=== PATIENT | male | born 1985 | race Caucasian/White ===

== ENCOUNTER 2023-09-01 21:30 | Inpatient (IN) ==
--- NOTE | 2023-09-01 21:51 | Emergency Department Note ---
Impression & Plan Syncope and collapse, Closed head injury, Fracture of nasal bone, Complex laceration of face ED Provider Note Name: MAINE GANDARA Age: 38 Sex: Male Arrives Via: Walk-In Informant: Patient and parents who witnessed the event ED Provider: Johnny Gómez MD Chief Complaint: Syncope Impression: As per impressions above Medical Decision Makin-year-old gentleman who recently traveled back from the [facility] arrives following sudden syncopal episode x 2. Both times sudden and no preceding events. Did strike his face as he collapsed to the ground. Arrives with significant abrasions lacerations to the anterior face. Awake alert oriented NIH 0. Breathing relatively comfortably other than a bit tachycardic. Given IV fluids and given trauma and recent travel CT of the head, cervical spine without contrast were obtained as well as a CT PE scan of the chest and a CT abdomen pelvis. Laboratory workup is relatively unremarkable. EKG is reassuring. CTs show nasal fracture but no other acute concerning findings. Laceration dirty and quite complex washed and repaired by Ty Dao PA-C. Plan to follow-up as an outpatient with [facility] given complex dirty wound and on antibiotics. That said given the syncopal event x 2 no preceding event clearly continued monitoring is reasonable and thus patient was hospitalized. No evidence of ACS, PE, dissection. Does not seem consistent with stroke. Concern for arrhythmia that could have caused it but he does not exhibit any arrhythmia on cardiac monitoring other than mild tachycardia. Triage/Nursing Notes reviewed by Me Differential:Vasovagal event, dehydration, infection, hypoglycemia, electrolyte abnormalities, cardiac sources, intracerebral event, pulmonary embolism, seizure, toxicologic, neurologic, as well as other pathologies. Vital Signs: reviewed and remarkable for tachy Interventions: Normal Saline bolus 1 L IV, Dilaudid 1 mg IV, Zofran 4 mg IV x 2, Ativan 1 mg IV, Unasyn IV. of note patient had severe nausea vomiting reaction to Dilaudid and was placed on his chart. Labs:ED labs Reviewed by me and remarkable for no significant abnormalities Imaging:CT of the head without contrast as per my informal interpretation no fracture nor intracranial hemorrhage/mass effect. Confirmed by radiologist to do note a small punctate area of air without clear source. CT of the cervical spine no fracture no dislocation appreciated as per my informal interpretation. Confirmed radiologist. CT of the face as per radiologist nasal bone fractures subcu air and multiple foreign bodies in anterior upper lip. CT chest PE scan as per my informal interpretation. No large caliber PE, effusion, pneumothorax, other. Confirmed radiologist. CT abdomen pelvis with IV contrast as per my informal interpretation. No intra- abdominal obstruction, free fluid, abscess. Confirmed by radiologist. EKG:As per my interpretation. Indication syncope. Sinus tachycardia at 105 bpm no ectopy no ischemia. QTc 425. No previous EKG for comparison Cardiac/Tele Monitoring: Cardiac Monitoring: An Order was placed for continuous cardiac monitoring. The monitor shows a rate of 105 with a sinus tach rhythm. Consults:Dr Niesha rBooks hospitalist to eval and bring in Dr Joanne DING discussed with STACI and will see patient early next week in clinic Plan: Disposition:Hospitalization. Condition: Good History of Present Illness: 38-year-old male arrives for evaluation of head trauma. Patient notes he has been feeling lightheaded throughout the day and had multiple syncopal events. He landed to hit his face on the concrete prior to arrival. Witnessed by family. Brought to ER for further evaluation. They note has been a little bit lightheaded. Patient states has been having palpitations. Recent travel from the [facility] a few weeks ago. Denies any leg swelling or calf pain though. No history of DVT or PE. Patient is on antidepressant medicine which he took this morning. Denies any drug or alcohol use. Denies recurrent syncope issues. He is under the impression that his tetanus shot is up-to-date. Past Medical History:Depression anxiety Home Medications:Antidepressant Allergies:No known drug allergy Vitals:Blood Pressure: 105/67, Pulse 105, RR 18, T 36.8C, O2 97% on RA Physical Exam: GENERAL: Patient is unwell appearing and in mild distress. HEAD: AT/NC other than face FACE: Extensive abrasions/bleeding over nose, upper lip chin. chipped upper front teeth NECK: No cervical TTP nor step-offs RESPIRATORY: No dyspnea. Clear to auscultation and equal bilaterally. CARDIOVASCULAR: Regular rate and rhythm.No murmur appreciated. GASTROINTESTINAL: Abdomen soft, non-tender, no peritonitis. EXTREMITIES: Normal motion all extremities, no cyanosis, no edema. NEUROLOGIC: Alert and oriented. No focal neurologic deficits appreciated SKIN: No rash, no jaundice, no diaphoresis. PSYCH: Appropriate GCS: 15 ED Course: Times/Reassessments: Multiple repeat evaluations. Patient is a bit uncomfortable with laceration repair this was given some Dilaudid. Unfortunately significant nausea vomiting from this. Zofran and Ativan given. Patient agreeable to hospitalization. Johnny Gómez MD Past Med/Surg History Social History Smoking Status: Never smoker Second Hand Exposure: No; Do You Dip or Chew Tobacco: No; Hx Alcohol Use: Yes Alcohol type: beer Preferred Language: Trinidadian Communication Ability: Effective Mortgage Protection Specialist Required: No Beliefs That Will Affect Care: None Current Living Situation: Alone Other Information That Helps Us Care for You: No Feels Safe at Home: Yes Safety Concerns: Feels Safe At This Time Assistive Devices: None Allergies Allergies Allergy/AdvReac Type Severity Reaction Status Date / Time Opioids - Morphine Analogues AdvReac Intermediate Vomiting Verified 09/02/23 01:20 Home Meds Home Medications Medication Instructions Recorded Confirmed desvenlafaxine succinate 50 mg 50 mg PO DAILY 09/01/23 09/01/23 tablet,extended release 24 hr Results & Data (ED) Vital Signs Vital Signs - 24 hr 09/01/23 21:33 09/01/23 22:47 09/01/23 23:01 Temperature 36.8 C Temperature Source Temporal Artery Scan Pulse Rate 105 H 103 H Pulse Rate [Apical] 105 H Pulse Rate from SpO2 Sensor Respiratory Rate 18 13 Respiratory Effort / Characteristics Non-Labored Spontaneous Respiratory Depth Normal Respiratory Pattern Regular Blood Pressure 105/67 Blood Pressure [Left Arm] 107/72 Blood Pressure Mean 79 Blood Pressure Mean [Left Arm] 83 Blood Pressure Position Sitting Pulse Oximetry 97 96 Oxygen Delivery Method Room Air Room Air Sepsis Recent Fever Within 48 Hours No Sepsis New/Unexplained Change in Mental Status N/A Sepsis Action Taken by Nursing No Action Required 09/01/23 23:01 09/02/23 00:00 09/02/23 01:00 Temperature Temperature Source Pulse Rate 103 H 104 H Pulse Rate [Apical] Pulse Rate from SpO2 Sensor 103 H 104 H Respiratory Rate 16 19 Respiratory Effort / Characteristics Respiratory Depth Respiratory Pattern Blood Pressure Blood Pressure [Left Arm] Blood Pressure Mean Blood Pressure Mean [Left Arm] Blood Pressure Position Pulse Oximetry 96 93 97 Oxygen Delivery Method Room Air Sepsis Recent Fever Within 48 Hours Sepsis New/Unexplained Change in Mental Status Sepsis Action Taken by Nursing 09/02/23 02:00 Temperature Temperature Source Pulse Rate 91 H Pulse Rate [Apical] Pulse Rate from SpO2 Sensor 92 H Respiratory Rate 16 Respiratory Effort / Characteristics Respiratory Depth Respiratory Pattern Blood Pressure Blood Pressure [Left Arm] Blood Pressure Mean Blood Pressure Mean [Left Arm] Blood Pressure Position Pulse Oximetry 93 Oxygen Delivery Method Sepsis Recent Fever Within 48 Hours Sepsis New/Unexplained Change in Mental Status Sepsis Action Taken by Nursing Laboratory Data 09/02/23 03:54 09/02/23 03:54 Lab Results 09/01/23 09/01/23 09/01/23 Range/Units 21:46 21:51 22:10 WBC 14.28 H (4.8-10.8) K/ul RBC 5.83 (4.70-6.10) M/uL Hgb 16.5 (14.0-18.0) g/dl POC Hgb 17.0 (14.0-18.0) g/dl Hct 48.6 (42.0-52.0) % POC Hct 50 (42-52) % MCV 83.4 (80.0-100.0) fL MCH 28.3 (25.0-34.0) pg MCHC 34.0 (32.0-36.0) g/dL RDW Std Deviation 40.9 (36.4-46.3) fL RDW Coeff of Camryn 13.5 (11.5-14.5) % Plt Count 414 H (130-400) K/uL MPV 8.7 L (9.4-12.4) fL Immature Gran % (Auto) 0.6 % Neut % (Auto) 77.6 % Lymph % (Auto) 14.1 % [place] % (Auto) 6.2 % Eos % (Auto) 1.3 % Baso % (Auto) 0.2 % Neut # (Auto) 11.08 H (1.40-6.50) K/uL Lymph # (Auto) 2.02 (1.20-3.40) K/uL [place] # (Auto) 0.88 H (0.11-0.59) K/uL Eos # (Auto) 0.18 (0.00-0.50) K/uL Baso # (Auto) 0.03 (0.00-0.20) K/uL Immature Gran # (Auto) 0.09 (0.01-0.20) K/uL PT 10.3 (9.0-12.0) Seconds INR 0.9 (0.9-1.1) POC Sodium 140 (135-144) mmol/L Sodium 139 (136-145) mmol/L POC Potassium 4.0 (3.3-5.0) mmol/L Potassium 4.1 (3.5-5.1) mmol/L POC Chloride 100 L (101-112) mmol/L Chloride 101 (98-107) mmol/L Carbon Dioxide 28 (21-32) mmol/L POC Total CO2 31 (24-31) mmol/L Anion Gap 10 (3-11) POC Anion Gap 14.0 L (16-25) mmol/L POC BUN 22 H (7-18) mg/dl BUN 21 (6-23) mg/dl Creatinine 1.26 (0.6-1.4) mg/dl POC Creatinine 1.3 (0.6-1.3) mg/dl Est Cr Clr Drug Dosing Not Reportable Est GFR ( Amer) 83.9 ml/min Est GFR (Non-Af Amer) 72.4 ml/min BUN/Creatinine Ratio 16.7 (10-20) Glucose 135 H (70-99(Fasting)) mg/dl POC Glucose 127 H (70-99) mg/dl POC Glucose (other) 135 H (70-99) mg/dl Estimat Average Glucose 111 mg/dl Hemoglobin A1c 5.5 (4.5-5.6) % Calcium 9.3 (8.6-10.3) mg/dl POC Ioniz Calcium Teresa 1.15 (1.12-1.32) mmol/l Magnesium 1.9 (1.7-2.4) mg/dl Total Bilirubin 0.4 (0.2-1.0) mg/dl AST 24 (13-39) U/L ALT 22 (7-52) U/L Alkaline Phosphatase 50 (34-104) U/L Troponin I High Sens 5.8 (0-20) pg/ml Total Protein 7.8 (6.0-8.3) gm/dl Albumin 4.7 (3.4-5.0) gm/dl Globulin 3.1 (2.5-4.0) gm/dl Albumin/Globulin Ratio 1.5 (0.9-2) Lipase 15 (11-82) U/L Procalcitonin 0.05 (0-0.5) ng/ml TSH 1.459 (0.300-4.500) uIu/ml Adenovirus (PCR) (NotDetected) B. pertussis DNA (PCR) (NotDetected) B.parapertussis DNA PCR (NotDetected) C. pneumoniae DNA (PCR) (NotDetected) Coronavirus OC43 (PCR) (NotDetected) Coronavirus HKU1 (PCR) (NotDetected) Coronavirus 229E (PCR) (NotDetected) SARS-CoV-2 (PCR) (NotDetected) Coronavirus NL63 (PCR) (NotDetected) Human Metapneumovir PCR (NotDetected) Influenza Type A (PCR) (NotDetected) Influenza Type B (PCR) (NotDetected) M. pneumoniae (PCR) (NotDetected) Parainfluenza 1 (PCR) (NotDetected) Parainfluenza 2 (PCR) (NotDetected) Parainfluenza 3 (PCR) (NotDetected) Parainfluenza 4 (PCR) (NotDetected) RSV (PCR) (NotDetected) Entero/Rhino (PCR) (NotDetected) Blood Type Antibody Screen 09/01/23 09/01/23 Range/Units 22:47 23:45 WBC (4.8-10.8) K/ul RBC (4.70-6.10) M/uL Hgb (14.0-18.0) g/dl POC Hgb (14.0-18.0) g/dl Hct (42.0-52.0) % POC Hct (42-52) % MCV (80.0-100.0) fL MCH (25.0-34.0) pg MCHC (32.0-36.0) g/dL RDW Std Deviation (36.4-46.3) fL RDW Coeff of Camryn (11.5-14.5) % Plt Count (130-400) K/uL MPV (9.4-12.4) fL Immature Gran % (Auto) % Neut % (Auto) % Lymph % (Auto) % [place] % (Auto) % Eos % (Auto) % Baso % (Auto) % Neut # (Auto) (1.40-6.50) K/uL Lymph # (Auto) (1.20-3.40) K/uL [place] # (Auto) (0.11-0.59) K/uL Eos # (Auto) (0.00-0.50) K/uL Baso # (Auto) (0.00-0.20) K/uL Immature Gran # (Auto) (0.01-0.20) K/uL PT (9.0-12.0) Seconds INR (0.9-1.1) POC Sodium (135-144) mmol/L Sodium (136-145) mmol/L POC Potassium (3.3-5.0) mmol/L Potassium (3.5-5.1) mmol/L POC Chloride (101-112) mmol/L Chloride (98-107) mmol/L Carbon Dioxide (21-32) mmol/L POC Total CO2 (24-31) mmol/L Anion Gap (3-11) POC Anion Gap (16-25) mmol/L POC BUN (7-18) mg/dl BUN (6-23) mg/dl Creatinine (0.6-1.4) mg/dl POC Creatinine (0.6-1.3) mg/dl Est Cr Clr Drug Dosing Est GFR ( Amer) ml/min Est GFR (Non-Af Amer) ml/min BUN/Creatinine Ratio (10-20) Glucose (70-99(Fasting)) mg/dl POC Glucose (70-99) mg/dl POC Glucose (other) (70-99) mg/dl Estimat Average Glucose mg/dl Hemoglobin A1c (4.5-5.6) % Calcium (8.6-10.3) mg/dl POC Ioniz Calcium Teresa (1.12-1.32) mmol/l Magnesium (1.7-2.4) mg/dl Total Bilirubin (0.2-1.0) mg/dl AST (13-39) U/L ALT (7-52) U/L Alkaline Phosphatase (34-104) U/L Troponin I High Sens (0-20) pg/ml Total Protein (6.0-8.3) gm/dl Albumin (3.4-5.0) gm/dl Globulin (2.5-4.0) gm/dl Albumin/Globulin Ratio (0.9-2) Lipase (11-82) U/L Procalcitonin (0-0.5) ng/ml TSH (0.300-4.500) uIu/ml Adenovirus (PCR) Not Detected (NotDetected) B. pertussis DNA (PCR) Not Detected (NotDetected) B.parapertussis DNA PCR Not Detected (NotDetected) C. pneumoniae DNA (PCR) Not Detected (NotDetected) Coronavirus OC43 (PCR) Not Detected (NotDetected) Coronavirus HKU1 (PCR) DETECTED A (NotDetected) Coronavirus 229E (PCR) Not Detected (NotDetected) SARS-CoV-2 (PCR) Not Detected (NotDetected) Coronavirus NL63 (PCR) Not Detected (NotDetected) Human Metapneumovir PCR Not Detected (NotDetected) Influenza Type A (PCR) Not Detected (NotDetected) Influenza Type B (PCR) Not Detected (NotDetected) M. pneumoniae (PCR) Not Detected (NotDetected) Parainfluenza 1 (PCR) Not Detected (NotDetected) Parainfluenza 2 (PCR) Not Detected (NotDetected) Parainfluenza 3 (PCR) Not Detected (NotDetected) Parainfluenza 4 (PCR) Not Detected (NotDetected) RSV (PCR) Not Detected (NotDetected) Entero/Rhino (PCR) Not Detected (NotDetected) Blood Type A Positive Antibody Screen NEGATIVE Administered Medications Amoxicillin/Clavulanate Potassium (Amoxicillin/Clavulanate 875 Mg Tab) 1 tab PO BIDM [facility]; Protocol Stop: 09/09/23 07:59 Last Admin: 09/02/23 08:39 Dose: 1 tab Documented By: LAN Ketorolac Tromethamine (Ketorolac Tromethamine 15 Mg/Ml Vial) 15 mg IV Q6H PRN PRN Reason: Pain Stop: 09/07/23 02:20 Last Admin: 09/02/23 10:33 Dose: 15 mg Documented By: LAN Miscellaneous (Desvenfelaxine~Order Awaiting Action) 1 each N/A QS [facility] Stop: 10/02/23 05:44 Last Admin: 09/02/23 09:13 Dose: Not Given Documented By: Admin: 09/02/23 09:12 Dose: Not Given Documented By: LAN Discontinued Medications Hydromorphone HCl (Hydromorphone Inj 1 Mg/Ml Syringe) 1 mg IV NOW STA Stop: 09/02/23 00:45 Last Admin: 09/02/23 00:57 Dose: 1 mg Documented By: MINAL Sodium Chloride (Nss) 1,000 mls @ 999 mls/hr IV .Q1H1M ONE Stop: 09/01/23 22:45 Last Infusion: 09/02/23 01:00 Dose: Infused Documented By: Admin: 09/01/23 23:11 Dose: 999 mls/hr Documented By: MINAL Ampicillin Sodium/Sulbactam Sodium 3,000 mg/ Sodium Chloride 100 mls @ 200 mls/hr IV NOW STA Stop: 09/02/23 01:15 Last Infusion: 09/02/23 02:40 Dose: Infused Documented By: Admin: 09/02/23 01:30 Dose: 200 mls/hr Documented By: MINAL Magnesium Sulfate/Dextrose (Magnesium Sulfate / D5w) 1 gm in 100 mls @ 50 mls/hr IV ONE STA Stop: 09/02/23 03:05 Last Infusion: 09/02/23 04:58 Dose: Infused Documented By: Admin: 09/02/23 02:03 Dose: 50 mls/hr Documented By: MINAL Lactated Ringer's (Lr) 1,000 mls @ 200 mls/hr IV .Q5H STA Stop: 09/02/23 06:06 Last Infusion: 09/02/23 10:05 Dose: Infused Documented By: Admin: 09/02/23 05:02 Dose: 200 mls/hr Documented By: Sodium Chloride (Nss) 1,000 mls @ 999 mls/hr IV .Q1H1M ONE Stop: 09/02/23 02:19 Last Infusion: 09/02/23 04:58 Dose: Infused Documented By: Admin: 09/02/23 02:03 Dose: 999 mls/hr Documented By: MINAL Ioversol (Optiray 320 125ml) 115 ml IV ONCE ONE Stop: 09/01/23 22:15 Last Admin: 09/01/23 22:14 Dose: 115 ml Documented By: PATSY Lidocaine HCl (Lidocaine 1% Local 20 Ml Vial) 20 ml INFIL NOW ONE Stop: 09/02/23 00:47 Last Admin: 09/02/23 01:47 Dose: 20 ml Documented By: MINAL Lorazepam (Lorazepam 1 Mg/1 Ml Syr Ed Inj Use) 1 mg IV ONE STA Stop: 09/02/23 01:20 Last Admin: 09/02/23 02:05 Dose: Not Given Documented By: MINAL Ondansetron HCl (Ondansetron Inj 2 Mg/Ml 2 Ml Vial) 4 mg IV NOW STA Stop: 09/01/23 21:46 Last Admin: 09/01/23 23:41 Dose: 4 mg Documented By: MINAL Ondansetron HCl (Ondansetron Inj 2 Mg/Ml 2 Ml Vial) Confirm Administered Dose 4 mg .ROUTE .STK-MED ONE Stop: 09/02/23 01:12 Last Admin: 09/02/23 01:31 Dose: Not Given Documented By: MINAL Ondansetron HCl (Ondansetron Inj 2 Mg/Ml 2 Ml Vial) 4 mg IV NOW STA Stop: 09/02/23 01:20 Last Admin: 09/02/23 01:30 Dose: 4 mg Documented By: MINAL Discharge Plan Visit Data Chief Complaint: Syncope (Near Syncope) Stated Complaint: FELL, FAINTED TWICE, FACIAL LACS/INJURY, VOMITING ED Provider: Johnny Gómez Discharge Problem: Syncope and collapse, Closed head injury, Fracture of nasal bone, Complex laceration of face Discharge Instructions Interventions: ED Discharge Assessment Last Done: 09/02/23 05:22 Discharge Problem: Closed head injury Qualifiers: Encounter type: initial encounter Qualified Code(s): S09.90XA - Unspecified injury of head, initial encounter Fracture of nasal bone Qualifiers: Encounter type: initial encounter Fracture type: open Qualified Code(s): S 02.2XXB - Fracture of nasal bones, initial encounter for open fracture Complex laceration of face Qualifiers: Encounter type: initial encounter Qualified Code(s): S01.91XA - Laceration without foreign body of unspecified part of head, initial encounter
[2023-09-01 22:04] LABS: iSTAT Creatinine 1.3 mg/dl (0.6-1.3); iSTAT Ionized Calcium 1.15 mmol/l (1.12-1.32)
[2023-09-01] MEDS: OPTIRAY 320 125ml IV ONE (22:14)
[2023-09-01 22:30] LABS: Basophils # (auto) 0.03 K/uL (0.00-0.20); Basophils % (auto) 0.2 %; Eosinophils # (auto) 0.18 K/uL (0.00-0.50); Eosinophils % (auto) 1.3 %; Hematocrit (blood only) 48.6 % (42.0-52.0); Hemoglobin 16.5 g/dl (14.0-18.0); Immature Granulocytes # (auto) 0.09 K/uL (0.01-0.20); Immature Granulocytes % (auto) 0.6 %; Lymphocytes # (auto) 2.02 K/uL (1.20-3.40); Lymphocytes % (auto) 14.1 %; Mean Corpuscular Hemoglobin 28.3 pg (25.0-34.0); Mean Corpuscular Volume 83.4 fL (80.0-100.0); Mean Platelet Volume 8.7 fL (9.4-12.4); Monocytes # (auto) 0.88 K/uL (0.11-0.59); Monocytes % (auto) 6.2 %; Neutrophils # (auto) 11.08 K/uL (1.40-6.50); Neutrophils % (auto) 77.6 %; Platelet Count 414 K/uL (130-400); RDW Coefficient of Variation 13.5 % (11.5-14.5); RDW Standard Deviation 40.9 fL (36.4-46.3); Red Blood Count 5.83 M/uL (4.70-6.10); White Blood Count 14.28 K/ul (4.8-10.8)
[2023-09-01 22:46] LABS: Alanine Aminotransferase 22 U/L (7-52); Albumin Globulin Ratio 1.5 (0.9-2); Albumin Level 4.7 gm/dl (3.4-5.0); Alkaline Phosphatase 50 U/L (34-104); Anion Gap 10 (3-11); Aspartate Aminotransferase 24 U/L (13-39); BUN Creatinine Ratio 16.7 (10-20); Bilirubin,Total 0.4 mg/dl (0.2-1.0); Blood Urea Nitrogen 21 mg/dl (6-23); Calcium 9.3 mg/dl (8.6-10.3); Carbon Dioxide 28 mmol/L (21-32); Chloride 101 mmol/L (98-107); Est GFR (African American) 83.9 ml/min; Est GFR (Non-African American) 72.4 ml/min; Globulin 3.1 gm/dl (2.5-4.0); Glucose 135 mg/dl (70-99(Fasting)); Magnesium 1.9 mg/dl (1.7-2.4); Potassium 4.1 mmol/L (3.5-5.1); Sodium 139 mmol/L (136-145); Total Protein 7.8 gm/dl (6.0-8.3)
[2023-09-01 22:54] LABS: INR 0.9 (0.9-1.1); Prothrombin Time 10.3 Seconds (9.0-12.0); Troponin I High Sensitivity 5.8 pg/ml (0-20)
[2023-09-01 23:03] LABS: Thyroid Stimulating Hormone 1.459 uIu/ml (0.300-4.500)
[2023-09-01] MEDS: SODIUM CHLORIDE 0.9% 1,000 ML IV ONE (23:11)
[2023-09-01] MEDS: ONDANSETRON INJ 2 MG/ML 2 ML VIAL IV STA (23:41)
--- NOTE | 2023-09-02 00:29 | CT Scan Report ---
CT facial bones wo con CLINICAL HISTORY: 38 years-old Male presenting with syncope; fall onto face. Acute facial trauma COMPARISON STUDY: Head CT of same day TECHNIQUE: High-resolution CT scan of the facial bones is performed. Images are reviewed in the axia l, sagittal, and coronal planes. IV contrast was not administered for this examination. A dose lower ing technique was utilized adhering to the principles of ALARA. CT DOSE: 3918.36 mGy.cm FINDINGS: Acute bilateral nasal bone fractures which are nondisplaced. Numerous punctate radiodense foci noted within the inferior nasal soft tissues. Small left maxillary air-fluid level. Bony orbits appear inta ct. Mastoid air cells are clear. Numerous chipped teeth are noted with displaced tiny tooth fragments in the adjacent soft tissues. Acute nondisplaced mid nasal septal fracture. The pterygoid plates and mandible appear intact. Anterior facial contusions. Punctate foci of gas noted within the region of the right cavernous sinus/orbital apex on image 165 series 7. IMPRESSION: 1. Acute nondisplaced bilateral nasal bone fractures. 2. Numerous chipped teeth with tiny tooth fragments within the adjacent soft tissues. 3. Acute nondisplaced mid nasal septal fracture. 4. Punctate foci of gas noted within the right middle cranial fossa near the cavernous sinus and righ t orbital apex of unknown etiology. No basilar skull fracture identified on this exam. ACT 112: Negative or not required by law. The above report was generated using voice recognition software. It may contain grammatical, syntax o r spelling errors. Electronically signed by: Iban Lira M.D. 09/02/2023 12:27 AM
--- NOTE | 2023-09-02 00:37 | CT Scan Report ---
CT angio chest PE protocol HISTORY: 38 years-old Male with PE; recurrent syncopal episodes. Acute shortness of breath with syn cope TECHNIQUE: Multiple CTA images of the chest were obtained after the intravenous administration of 115 ml Optiray. Coronal and sagittal MIPS were obtained from the axial data set and were submitted for review. All measurements were obtained according to NASCET criteria. A dose lowering technique was u tilized adhering to the principles of ALARA. COMPARISON: None. FINDINGS: CTA: Heart is normal in size. No pericardial effusion or pulmonary embolus. Normal thoracic aorta. Respira tory motion artifact limits evaluation of the segmental and subsegmental branches. CT CHEST: There are a few borderline-enlarged mediastinal and hilar lymph nodes measuring up to 10 mm. Unremark able thyroid. No pneumothorax, pleural effusion, airspace consolidation or pulmonary edema. Central a irways are patent. Minimal dependent subsegmental bibasilar atelectasis. Study is degraded by respira tory motion. No acute upper abdominal abnormality. No acute fracture. Healing subacute nondisplaced f racture of the anterior right fourth rib. IMPRESSION: 1. Study degraded by respiratory motion artifact. 2. No central pulmonary emboli identified. 3. Healing subacute nondisplaced right anterior fourth rib fracture. No pneumothorax. 4. Borderline enlarged mediastinal and hilar lymph nodes are nonspecific and may be reactive. ACT 112: Negative or not required by law. The above report was generated using voice recognition software. It may contain grammatical, syntax o r spelling errors. Electronically signed by: Iban Lira M.D. 09/02/2023 12:35 AM
--- NOTE | 2023-09-02 00:44 | CT Scan Report ---
CT head/brain wo con CLINICAL HISTORY: 38 years-old Male with syncope; facial trauma. Acute facial trauma TECHNIQUE: Multiple axial CT images of the head were obtained without contrast. A dose lowering tech nique was utilized adhering to the principles of ALARA. COMPARISON: CT cervical and maxillofacial studies of same day FINDINGS: No acute intracranial hemorrhage, midline shift, intracranial mass, hydrocephalus, territorial ischem ia or abnormal extra-axial collection. No acute calvarial fracture. Facial bone fractures are better seen on the same day CT facial study. M axillary sinus air-fluid level. IMPRESSION: 1. No acute intracranial abnormality or calvarial fracture. 2. Please refer to the CT maxillofacial study of same day for additional findings. ACT 112: Negative or not required by law. The above report was generated using voice recognition software. It may contain grammatical, syntax o r spelling errors. Electronically signed by: Iban Lira M.D. 09/02/2023 12:43 AM
--- NOTE | 2023-09-02 00:47 | CT Scan Report ---
Exam(s): CT C SPINE EXAM: CT Cervical Spine Without Intravenous Contrast CLINICAL HISTORY: Reason for exam: syncope; facial trauma. TECHNIQUE: Axial computed tomography images of the cervical spine without intravenous contrast. CTDI is 28.11 mGy and DLP is 851.55 mGy-cm. Automated exposure control was utilized for the study. A dose lowering technique was utilized adhering to the principles of ALARA. COMPARISON: No relevant prior studies available. FINDINGS: Vertebrae: Chronic appearing Schmorl's node in the superior endplate of C7. No acute fracture. Soft tissues: Unremarkable. DISCS/SPINAL CANAL/NEURAL FORAMINA: C2-C3: Unremarkable. No significant disc disease. No stenosis. C3-C4: Unremarkable. No significant disc disease. No stenosis. C4-C5: Unremarkable. No significant disc disease. No stenosis. C5-C6: Mild degenerative disc disease. No stenosis. C6-C7: Mild degenerative disc disease. No stenosis. C7-T1: Unremarkable. No significant disc disease. No stenosis. IMPRESSION: Mild degenerative changes in the lower cervical spine. No acute fracture, subluxation, or significant spinal stenosis is identified. Electronically signed by: Fady Yanez MD 09/02/23 00:46 AM
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
[2023-09-02] MEDS: HYDROmorphone INJ 1 MG/ML SYRINGE IV STA (00:57)
[2023-09-02 01:21] LABS: Adenovirus PCR Not Detected (NotDetected); Bordetella parapertussis PCR Not Detected (NotDetected); Bordetella pertussis PCR Not Detected (NotDetected); Chlamydia pneumoniae PCR Not Detected (NotDetected); Coronavirus 229E PCR Not Detected (NotDetected); Coronavirus CoV-2 (COVID19)PCR Not Detected (NotDetected); Coronavirus HKU1 PCR DETECTED (NotDetected); Coronavirus NL63 PCR Not Detected (NotDetected); Coronavirus OC43PCR Not Detected (NotDetected); Human Metapneumovirus PCR Not Detected (NotDetected); Influenza A PCR Not Detected (NotDetected); Influenza B PCR Not Detected (NotDetected); Mycoplasma pneumoniae PCR Not Detected (NotDetected); Parainfluenza Virus 1 PCR Not Detected (NotDetected); Parainfluenza Virus 2 PCR Not Detected (NotDetected); Parainfluenza Virus 3 PCR Not Detected (NotDetected); Parainfluenza Virus 4 PCR Not Detected (NotDetected); Respiratory Syncytial VirusPCR Not Detected (NotDetected); Rhinovirus/Enterovirus PCR Not Detected (NotDetected)
[2023-09-02] MEDS: ONDANSETRON INJ 2 MG/ML 2 ML VIAL IV STA (01:30)
[2023-09-02] MEDS: AMPICILLIN/SULBACTAM SOD 3,000 MG in SODIUM CHLOR 0.9% MINI-B 100 ML IV STA (01:30)
[2023-09-02] MEDS: ONDANSETRON INJ 2 MG/ML 2 ML VIAL ONE (01:31)
--- NOTE | 2023-09-02 01:32 | Emergency Department Note ---
ED Visit Note Patient was seen and evaluated by Dr. Lopez. I was present to repair the patient's facial lacerations. Patient does have 2 areas of injury overlying the nose and also the upper lip region. Risks and benefits of repair discussed with the patient. Verbal consent was obtained from the patient. I do recommend repair of these wounds. Please refer to the detailed procedure note below regarding repair. Laceration #1: Location is overlying the mid nasal region. It is a stellate wound with total repairable length of 2.5 cm. 2 mL of 1% lidocaine without epinephrine was used to anesthetize the nose laceration. The wound was cleansed and prepped in the typical sterile fashion utilizing normal saline and dilute Betadine. The wound was sterilely draped. Once proper anesthetization was established, the wound was further examined and demonstrated repairable laceration without evidence of retained foreign body. The wound was copiously irrigated with normal saline and dilute Betadine. The wound was closed using 7 simple, 6-0 nylon sutures with the wound edges being well approximated. Patient tolerated the procedure well. No complications were met. The wound was cleansed and dressed with a thin layer of bacitracin. Laceration #2: Location is just at the inferior portion of the nose at the nasal septum extending in a horizontal fashion through the philtrum and soft tissue just above the upper lip facial hair. Total wound length is approximately 4 cm. The wound edges are rather irregular with several small irregular tiny pieces at the wound edges. There are pieces of gravel visible at the wound edges. Inspection of the intraoral mucosa does show small wounds as well but no large communicating wound. It appears that there is a small avulsion of soft tissue overlying the inferior aspect of the nasal septum without cartilage exposure. There is some avulsed and no longer present tissue and a few areas on the left aspect of the wound just lateral to the philtrum. 3.5 mL of 1% lidocaine without epinephrine was used to anesthetize the nose laceration. The wound was cleansed and prepped in the typical sterile fashion utilizing normal saline and dilute Betadine. The wound was sterilely draped. Once proper anesthetization was established, the wound was further examined and demonstrated repairable laceration with multiple tiny rocklike foreign bodies which were meticulously removed utilizing sterile forceps with repeat irrigation of the wound following removal of these foreign bodies. The wound was copiously irrigated with normal saline and dilute Betadine. The wound was closed using 9 simple, 6-0 nylon sutures with the wound edges being well approximated. The central aspect of the laceration where the horizontal wound traverses overlying the soft tissues of the inferior nasal region overlying the nasal septum is avulsed but I did recommend attempting to repair this with the understanding that the small piece of avulsed tissue may not be viable. At this time it will serve as a biologic dressing but also may be viable. Patient will require close follow-up with OMFS/plastics moving forward for recheck of the wound. He may require revisions depending on healing and he is aware of this. Patient tolerated the procedure well. No complications were met. At 3:25 AM on 09/02/2023 I did speak with the on-call oral maxillofacial surgeon, Dr. Rubio. Patient will be able to follow-up as an outpatient closely this coming week for recheck and further evaluation/management. I relayed this information to the hospitalist. Please refer to further documentation regarding his stay. I recommend suture removal in 7 days unless otherwise directed by OMFS. Estimated blood loss was about 3 mL and minimal. .
[2023-09-02] MEDS: LIDOCAINE 1% LOCAL 20 ML VIAL INFIL ONE (01:47)
[2023-09-02] MEDS: MAGNESIUM SULFATE / D5W 1 GM/100 ML BAG IV STA (02:03)
[2023-09-02] MEDS: SODIUM CHLORIDE 0.9% 1,000 ML IV ONE (02:03)
[2023-09-02] MEDS: LORazepam 1 MG/1 ML SYR ED Inj Use IV STA (02:05)
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
[2023-09-02] MEDS ORDERED: oxyCODONE HCL IR 5 MG TAB (IMMEDIATE RELEASE) PO PRN (02:21)
[2023-09-02] MEDS ORDERED: PROMETHAZINE HCL 12.5 MG in SODIUM CHLORIDE 0.9% 50 ML IV PRN (02:21)
[2023-09-02 03:52] LABS: Lipase 15 U/L (11-82)
[2023-09-02 04:51] LABS: Hematocrit (blood only) 44.7 % (42.0-52.0); Hemoglobin 14.6 g/dl (14.0-18.0); Mean Corpuscular Hemoglobin 28.1 pg (25.0-34.0); Mean Corpuscular Hgb Conc 32.7 g/dL (32.0-36.0); Mean Platelet Volume 8.6 fL (9.4-12.4); Platelet Count 324 K/uL (130-400); RDW Coefficient of Variation 13.5 % (11.5-14.5); RDW Standard Deviation 42.5 fL (36.4-46.3); White Blood Count 10.54 K/ul (4.8-10.8)
[2023-09-02 04:52] LABS: Anion Gap 5 (3-11); BUN Creatinine Ratio 20.4 (10-20); Blood Urea Nitrogen 21 mg/dl (6-23); Calcium 8.6 mg/dl (8.6-10.3); Carbon Dioxide 27 mmol/L (21-32); Chloride 106 mmol/L (98-107); Est GFR (African American) 107.1 ml/min; Est GFR (Non-African American) 92.4 ml/min; Glucose 124 mg/dl (70-99(Fasting)); Potassium 4.4 mmol/L (3.5-5.1); Sodium 138 mmol/L (136-145)
[2023-09-02 05:00] LABS: Appearance Urine Clear (Clear); Bilirubin Urine Negative (Negative); Blood Urine Negative (Negative); Color Urine Yellow; Glucose Urine UA Negative (Negative); Ketones Urine Negative (Negative); Leukocyte Esterase Urine Negative (Negative); Nitrite Urine Negative (Negative); Protein Urine Negative (Negative); Specific Gravity Urine > 1.045 (1.000-1.030); Urobilinogen Urine Negative (Negative); pH Urine 7.5 (4.5-7.5)
[2023-09-02] MEDS: LACTATED RINGER'S 1,000 ML IV STA (05:02)
[2023-09-02 05:11] LABS: Basophils # (auto) 0.02 K/uL (0.00-0.20); Basophils % (auto) 0.2 %; Eosinophils # (auto) 0.01 K/uL (0.00-0.50); Eosinophils % (auto) 0.1 %; Immature Granulocytes # (auto) 0.07 K/uL (0.01-0.20); Immature Granulocytes % (auto) 0.7 %; Lymphocytes # (auto) 0.41 K/uL (1.20-3.40); Lymphocytes % (auto) 3.9 %; Monocytes # (auto) 0.48 K/uL (0.11-0.59); Monocytes % (auto) 4.6 %; Neutrophils # (auto) 9.55 K/uL (1.40-6.50); Neutrophils % (auto) 90.5 %; RBC Morphology Unremarkable
[2023-09-02 05:24] LABS: Amphetamines+Metham, Urine Neg (Neg); Barbiturates, Urine Neg (Neg); Benzodiazepine, Urine Neg (Neg); Cocaine, Urine Neg (Neg); MDMA (Ecstacy), Urine Neg (Neg); Marijuana, Urine Neg (Neg); Methadone, Urine Neg (Neg); Opiate, Urine Neg (Neg); Phencyclidine, Urine Neg (Neg)
[2023-09-02 07:08] LABS: Estimated Average Glucose 111 mg/dl; Hemoglobin A1C 5.5 % (4.5-5.6)
--- NOTE | 2023-09-02 07:24 | Electrocardiogram Report ---
Test Reason : Blood Pressure : / mmHG Vent. Rate : 105 BPM Atrial Rate : 105 BPM P-R Int : 154 ms QRS Dur : 072 ms QT Int : 322 ms P-R-T Axes : 055 033 021 degrees QTc Int : 425 ms Sinus tachycardia Otherwise normal ECG No previous ECGs available Confirmed by Timothy Frazier ([id number]) on 09/02/2023 7:24:36 AM Referred By: REFERRED SELF Confirmed By:Timothy Frazier
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
[2023-09-02] MEDS: AMOXICILLIN/CLAVULANATE 875 MG TAB PO SCH (08:39)
[2023-09-02] MEDS: KETOROLAC TROMETHAMINE 15 MG/ML VIAL IV PRN (10:33)
--- NOTE | 2023-09-02 11:52 | CT Scan Report ---
CT head/brain wo con CLINICAL HISTORY: up head trauma Technique: Contiguous axial CT images of the head were acquired from the base of the skull to the fidel yoshi without intravenous contrast administration. Images were viewed in brain, subdural and bone [facility]. Automated dose lowering techniques and/or adjustment according to patient size were utilized for this exam. Comparison: None available at the time of this dictation. Findings: The ventricles, basal cisterns, and cerebral sulci are normal. There is no acute intracranial hemorrh age or evidence of acute territorial infarction. Neither mass effect, shift of the midline structures , nor abnormal extra-axial fluid collections are shown. Imaged portions of the paranasal sinuses and mastoid air cells are clear. The orbits appear normal. There are no acute fractures of the calvaria or scalp swelling. Impression: No acute intracranial hemorrhage, no evidence of acute territorial infarction or other acute intracra nial disease process. ACT 112: Negative or not required by law. Electronically signed by: Gee Vail M.D. 09/02/2023 11:50 AM
[2023-09-02] MEDS: SODIUM CHLORIDE 0.9% 1,000 ML IV SCH (15:14)
[2023-09-02] MEDS: ACETAMINOPHEN 325 MG TAB PO PRN (15:15)
[2023-09-02] MEDS: GADOBUTROL 65ML VIAL IV ONE (16:15)
[2023-09-02] MEDS ORDERED: INFLUENZA VIRUS QUADRIVALENT VACCINE (IIV4) 0.5 ML SYR IM ONE (18:21)
--- NOTE | 2023-09-02 19:06 | Magnetic Resonance Report ---
MR brain wo/w con CLINICAL HISTORY: syncope TECHNIQUE: Multiplanar and multisequence MR images of the brain were obtained prior to and following administration of gadolinium contrast. Comparison: Comparison is made to MRI brain 09/02/2023 FINDINGS: No abnormal restricted diffusion is identified. The white matter is unremarkable. The ventricular sys tem is normal in appearance. No mass or abnormal enhancement is seen. There is no mass effect or midl ine shift. There is no evidence of acute intraparenchymal hemorrhage. No extra axial fluid collection s are seen. The corpus callosum, pituitary gland, and cerebellar tonsils appear grossly unremarkable. Flow voids of the major intracranial arterial vessels are identified. Sinus mucosal thickening is see n most prominent in the bilateral maxillary sinuses. IMPRESSION: No acute abnormalities. ACT 112: Negative or not required by law. Electronically signed by: Gee Vail M.D. 09/02/2023 7:05 PM
--- NOTE | 2023-09-02 19:11 | Ultrasound Report ---
ULTRASOUND OF THE CAROTID ARTERIES CLINICAL HISTORY: syncope TECHNIQUE: Real-time, grayscale, and color Doppler sonography of the carotid arteries is performed. I mages are reviewed in the transverse and longitudinal planes. COMPARISON: Comparison is made to CT cervical spine 09/01/2023 FINDINGS: The carotid arteries are patent bilaterally and demonstrate antegrade flow. There is no atherosclerot ic plaque on the right and no atherosclerotic plaque on the left. Normal doppler arterial waveforms a re seen throughout. Velocity measurements are listed below. Common carotid peak systolic velocity (cm/sec): RIGHT: 102 LEFT: 96 ICA peak systolic velocity (cm/sec): RIGHT: 133 LEFT: 155 ICA/CC peak systolic ratio: RIGHT: 1.3 LEFT: 1.6 Antegrade flow was shown in the vertebral arteries. The external carotid arteries are patent. Of note , heart rate was elevated during the exam which may result in artifactually high resistance waveforms . IMPRESSION: 1. There is no sonographic evidence of hemodynamically significant stenosis in the right or left car otid arterial system. 2. Antegrade flow is shown in the vertebral arteries. Society of Radiologists in Ultrasound consensus guidelines: Normal: ICA PSV is <125 cm/sec and no plaque or intimal thickening is visible sonographically additional criteria include ICA/CCA PSV ratio <2.0 and ICA EDV <40 cm/sec <50% ICA stenosis: ICA PSV is <125 cm/sec and plaque or intimal thickening is visible sonographically additional criteria include ICA/CCA PSV ratio <2.0 and ICA EDV <40 cm/sec 50-69% ICA stenosis: ICA PSV is 125-230 cm/sec and plaque is visible sonographically additional criteria include ICA/CCA PSV ratio of 2.0-4.0 and ICA EDV of 40-100 cm/sec ?70% ICA stenosis but less than near occlusion: ICA PSV is >230 cm/sec and visible plaque and luminal narrowing are seen at arrieta-scale and color Dopp ler ultrasound (the higher the Doppler parameters lie above the threshold of 230 cm/sec, the greater the likelihood of severe disease) additional criteria include ICA/CCA PSV ratio >4 and ICA EDV >100 cm/sec ACT 112: Negative or not required by law. Electronically signed by: Gee Vail M.D. 09/02/2023 7:10 PM
[2023-09-03 05:27] LABS: Basophils # (auto) 0.02 K/uL (0.00-0.20); Basophils % (auto) 0.3 %; Eosinophils # (auto) 0.06 K/uL (0.00-0.50); Eosinophils % (auto) 0.9 %; Hematocrit (blood only) 39.3 % (42.0-52.0); Hemoglobin 12.6 g/dl (14.0-18.0); Immature Granulocytes # (auto) 0.03 K/uL (0.01-0.20); Immature Granulocytes % (auto) 0.5 %; Lymphocytes # (auto) 1.78 K/uL (1.20-3.40); Lymphocytes % (auto) 28.1 %; Mean Corpuscular Hgb Conc 32.1 g/dL (32.0-36.0); Mean Corpuscular Volume 87.3 fL (80.0-100.0); Mean Platelet Volume 8.7 fL (9.4-12.4); Monocytes # (auto) 0.65 K/uL (0.11-0.59); Monocytes % (auto) 10.3 %; Neutrophils # (auto) 3.79 K/uL (1.40-6.50); Neutrophils % (auto) 59.9 %; Platelet Count 240 K/uL (130-400); RDW Coefficient of Variation 14.1 % (11.5-14.5); RDW Standard Deviation 44.7 fL (36.4-46.3); White Blood Count 6.33 K/ul (4.8-10.8)
[2023-09-03 06:36] LABS: Anion Gap 5 (3-11); BUN Creatinine Ratio 15.2 (10-20); Blood Urea Nitrogen 14 mg/dl (6-23); Calcium 7.5 mg/dl (8.6-10.3); Carbon Dioxide 28 mmol/L (21-32); Chloride 104 mmol/L (98-107); Creatinine Clr Calc Pharmacy 150.8 ml/min; Est GFR (African American) 122.7 ml/min; Est GFR (Non-African American) 105.9 ml/min; Glucose 98 mg/dl (70-99(Fasting)); Magnesium 1.9 mg/dl (1.7-2.4); Phosphorus 2.5 mg/dl (2.5-4.9); Sodium 137 mmol/L (136-145)
[2023-09-03] MEDS: DESVENLAFAXINE SUCCINATE ER TABLET PO SCH (08:34)
[2023-09-03] MEDS ORDERED: VANCOMYCIN CONSULT ACTIVE PRN (10:51)
[2023-09-03] MEDS: PIPERACILLIN/TAZOBACTAM 4.5 GM in DEXTROSE 5% MINI-B 100 ML IV SCH (11:34)
--- NOTE | 2023-09-03 11:52 | Pharmacy Report ---
Pharmacy PK ABX Note - Date of Service September 03, 2023 - Assessment and Plan Assessment 38 year old M receiving Vancomycin + Cefepime + Doxycycline for empiric treatment of fever. * 24 hr Tmax of 39.5oC. Leukocytosis resolved. Lactate normal. Procal pending. * Blood cultures pending. Coronavirus, non-COVID 19, positive. "Raging Headache" per provider so LP ordered to rule out meningitis. Lyme panel ordered. * Day #1 of antimicrobial therapy. Plan Vancomycin * Loading dose: 2750 mg IV x 1 * Maintenance dose: 1500 mg IV every 12 hours * Regimen is predicted to achieve target AUC/ROHAN of 400-600 mg/L.hr * No level to be ordered unless therapy extends beyond 48 hours Cefepime * 2000 mg IV every 8 hours Doxycycline * 100 mg PO every 12 hours Pharmacy will continue to follow and will adjust dose/frequency as necessary. Thank you. Pharmacy has transitioned to AUC monitoring for vancomycin. AUC/ROHAN is the preferred PK/PD target and is associated with decreased risk of nephrotoxicity compared to traditional trough targets.
[2023-09-03] MEDS ORDERED: VANCOMYCIN HCL 2,500 MG in SODIUM CHLORIDE 0.9% 500 ML IV ONE (12:00)
[2023-09-03] MEDS: VANCOMYCIN HCL 2,750 MG in SODIUM CHLORIDE 0.9% 500 ML IV ONE (12:52)
[2023-09-03] MEDS: DOXYCYCLINE HYCLATE 100 MG CAP PO SCH (12:53)
--- NOTE | 2023-09-03 12:57 | Hospitalist Progress Note ---
Date of Service September 03, 2023 Assessment & Plan (1) Syncope: Plan Pt is a 38yoM with PMhx significant for ADHD, anxiety/mood disorder, past tobacco abuse presenting with facial fractures in the setting of syncopal episodes prior to arrival. Syncope Tox screen negative UA negative Head CT with no acute cause EKG with sinus tachycardia, Echo grossly unremarkable with EF 55-60%, no valvular pathology, nondilated cardiac chambers Brain MRI with no acute changes Carotid dopplers with no acute changes EEG pending Orthostatic vitals- systolic BP decreased by 20 points from laying to standing Pt positive for non-covid coronovirus and norovirus infection, ?of episode due to this setting? Notes episodes of vomiting and noted enteritis prior to arrival Also possibly secondary to orthostasis Continue IVF Continue to monitor on telemetry Headache Fevers Coronovirus infection ?Meningitis/Encephalitis Pt with intractable headache Known coronovirus infection Spiking fevers overnight on 09/01 LP, neurology consulted, appreciate recs Trend fever curve Abx broadened to Cefepime, Vancomycin and doxycycline for possible bacterial meningitis Pain control Continue to monitor Acute Facial fractures Chipped teeth Subacute rib fracture Facial fractures/dirty lacerated wounds status post repair Likely in setting of above, pt with noted repeat episodes of syncope Face CT noting acute nasal bone fractures, chipped teeth and acute nondisplaced mid nasal septal fracture Was on Augmentin in this setting of dirty laceration, broadened as above with addition of Flagyl for anaerobic coverage Pain control OMFS consulted, appreciate recs Norovirus infection WBC elevated to 14K on admission CT abdomen pelvis noting a possible enteritis Pt with viral coronovirus infection, non covid Stool Cx + for norovirus C diff negative Supportive treatments Gas foci, R middle Cranial fossa Noted on face CT Head CT as above MRI brain with no acute findings Consider neuro follow up based on further imaging Sinus Tachycardia HR consistently above 100 EKG noting sinus tachycardia Echo as above, grossly unremarkable with EF 55-60%, no valvular pathology, nondilated cardiac chambers Likely elevated in acute setting Anticipate improvement with pain control and abx Continue to monitor, consider BB if persistent Coronavirus Infection Pt positive for non covid coronavirus infection Supportive treatment Hyperglycemia Glucose levels elevated Hgba1c wnl, DMII r/o Degenerative disc Disease Noted on CT cervical spine pain control if symptomatic PCP f/u Enlarged mediastinal and hilar lymph nodes Noted on CT imaging likely reactive Outpt followup ADHD stable off maintenance medications anxiety/mood disorder at baseline Diet: Clears, advance as tolerated DVT prophylaxis: SCDs Re: Traumatic epistaxis Full code Admission and Anticipated Discharge Date Admission Date: September 02, 2023 Subjective Pt noting raging headache today. Spiking fevers overnight. Parents at bedside. Fiance on the phone. Discussion of imaging, workup and plan. Review of Systems Review of Systems: All systems reviewed & are unremarkable except as noted in Subjective Physical Exam Physical Exam: General: Alert, oriented Skin: facial bruises noted Psych: Appropriate mood and affect HEENT: NC/AT CV: RRR Resp: Breath sounds clear bilaterally, no increased effort of breathing. Abdomen: Soft, nontender, nondistended. Extremities: No edema in lower extremities bilaterally. Results & Data Results & Data Vital Signs (Past 12 Hours) Vital Signs Temp Pulse Pulse Resp BP Pulse Ox Pulse Ox 09/03/23 11:44 37.5 C 89 16 121/75 95 09/03/23 10:35 09/03/23 10:24 93 09/03/23 09:13 37.7 C H 09/03/23 08:28 38.2 C H 103 H 16 101/54 L 99 09/03/23 07:34 84 09/03/23 03:07 37.5 C 88 20 129/77 99 09/03/23 01:32 O2 Del Method O2 Del Method O2 Flow Rate O2 Flow Rate 09/03/23 11:44 Oxymask 1 09/03/23 10:35 Oxymask 1 09/03/23 10:24 Oxymask 1 09/03/23 09:13 09/03/23 08:28 Oxymask 2 09/03/23 07:34 09/03/23 03:07 Oxymask 2 09/03/23 01:32 Oxymask 2
[2023-09-03] MEDS: CEFEPIME 2,000 MG in SYRINGE 0 ML IV SCH (13:36)
[2023-09-03 14:15] LABS: Adenovirus F 40/41 PCR Not Detected (NotDetected); Astrovirus PCR Not Detected (NotDetected); Campylobacter PCR Not Detected (NotDetected); Cryptosporidium PCR Not Detected (NotDetected); Cyclospora cayetanensis PCR Not Detected (NotDetected); Entamoeba histolytica PCR Not Detected (NotDetected); Enteroaggregative E.coli(EAEC) Not Detected (NotDetected); Enteropathogenic E.coli (EPEC) Not Detected (NotDetected); Enterotoxigenic E.coli (ETEC) Not Detected (NotDetected); Giardia lamblia PCR Not Detected (NotDetected); Plesiomonas shigelloides PCR Not Detected (NotDetected); Rotavirus A PCR Not Detected (NotDetected); Salmonella PCR Not Detected (NotDetected); Sapovirus PCR Not Detected (NotDetected); Shiga-like Toxin E.coli (STEC) Not Detected (NotDetected); Shigella/Enteroinvasive E.coli Not Detected (NotDetected); Vibrio cholerae PCR Not Detected (NotDetected); Vibrio species PCR Not Detected (NotDetected); Yersinia enterocolitica PCR Not Detected (NotDetected)
[2023-09-03 14:19] LABS: Norovirus GI/GII PCR DETECTED (NotDetected)
[2023-09-03] MEDS: DEXTROSE 5% IV SCH (17:20)
[2023-09-03] MEDS: ACYCLOVIR SOD IV SCH (17:20)
[2023-09-03] MEDS: metroNIDAZOLE 500 MG/100 ML BAG IV SCH (17:20)
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
[2023-09-03] MEDS: VANCOMYCIN HCL 1,500 MG in SODIUM CHLORIDE 0.9% 500 ML IV SCH (23:54)
[2023-09-04 05:04] LABS: Basophils # (auto) 0.03 K/uL (0.00-0.20); Basophils % (auto) 0.4 %; Eosinophils # (auto) 0.07 K/uL (0.00-0.50); Hematocrit (blood only) 38.2 % (42.0-52.0); Hemoglobin 12.3 g/dl (14.0-18.0); Immature Granulocytes # (auto) 0.03 K/uL (0.01-0.20); Immature Granulocytes % (auto) 0.4 %; Lymphocytes # (auto) 1.49 K/uL (1.20-3.40); Lymphocytes % (auto) 20.4 %; Mean Corpuscular Hgb Conc 32.2 g/dL (32.0-36.0); Mean Corpuscular Volume 86.8 fL (80.0-100.0); Mean Platelet Volume 8.4 fL (9.4-12.4); Monocytes # (auto) 0.61 K/uL (0.11-0.59); Monocytes % (auto) 8.4 %; Neutrophils # (auto) 5.07 K/uL (1.40-6.50); Neutrophils % (auto) 69.4 %; Platelet Count 230 K/uL (130-400); RDW Coefficient of Variation 13.5 % (11.5-14.5); RDW Standard Deviation 42.5 fL (36.4-46.3)
[2023-09-04 05:21] LABS: BUN Creatinine Ratio 12.2 (10-20); Calcium 7.7 mg/dl (8.6-10.3); Creatinine Clr Calc Pharmacy 187.9 ml/min; Est GFR (African American) 136.6 ml/min; Est GFR (Non-African American) 117.8 ml/min; Magnesium 1.8 mg/dl (1.7-2.4); Potassium 3.7 mmol/L (3.5-5.1)
[2023-09-04] MEDS ORDERED: POTASSIUM PHOS 3 MMOL/1 ML INFUSION IV STA (07:50)
[2023-09-04] MEDS: POTASSIUM PHOSPHATE 21 MMOL in SODIUM CHLORIDE 0.9% 500 ML IV ONE (09:42)
--- NOTE | 2023-09-04 10:29 | Pharmacy Report ---
Pharmacy PK ABX Note - Date of Service September 04, 2023 - Assessment and Plan Assessment 38 year old M receiving Vancomycin + Cefepime + Doxycycline + Metronidazole + Acyclovir for empiric treatment of fever. Pharmacy has been consulted to dose VANCOMYCIN X 48 HOUR EMPIRIC COVERAGE * EENT consulted due to infected teeth * 24 hr Tmax of 38.2oC. Leukocytosis resolved. Lactate normal. Procal 0.04 * Blood cultures no growth to date. Coronavirus, non-COVID 19, positive. Stool positive for Norovirus. "Raging Headache" per provider so LP ordered to rule out meningitis however patient refused. Peripheral smear negative for anaplasmosis/babesia (serologies pending) * ID has been consulted * Day #2 of antimicrobial therapy. Plan Vancomycin * SCr improved today, maint dose likely needs increased to have a greater probability of achieving therapeutic target * *NEW* maintenance dose: 1750 mg IV every 12 hours * Regimen is predicted to achieve target AUC/ROHAN of 400-600 mg/L.hr * No level to be ordered unless therapy extends beyond 48 hours (therapy will end 09/05 at 0000) Pharmacy will continue to follow and will adjust dose/frequency as necessary. Thank you. Pharmacy has transitioned to AUC monitoring for vancomycin. AUC/ROHAN is the preferred PK/PD target and is associated with decreased risk of nephrotoxicity compared to traditional trough targets.
[2023-09-04] MEDS: VANCOMYCIN HCL 1,750 MG in SODIUM CHLORIDE 0.9% 500 ML IV SCH (12:05)
--- NOTE | 2023-09-04 14:19 | Infectious Disease Consult ---
Date of Service September 04, 2023 Telehealth Information I performed this visit using a real-time telehealth connection between my location and the patients location ([facility]). After connecting through interactive tele-video, patient was identified by name and date of and/or wristband check.Patient (or authorized healthcare field service representative) was informed that this was a telemedicine visit and it was being conducted confidentially over secure lines. My office door was closed and no one else was present in the room with me.Patient (or authorized healthcare field service representative) provided consent to proceed with the visit, expressed an understanding of privacy and security of the telemedicine visit, and gave permission to have a hospital field service representative in the room in order to assist with the visit and to conduct portions of the visit, as needed. I informed the patient (or authorized healthcare field service representative) that I reviewed their record and presented the opportunity for them to ask any questions regarding the visit today. The patient agreed to participate. Assessment & Plan (1) Syncope and collapse: (2) Norovirus: (3) Coronavirus infection: Plan -Would prefer LP to rule out meningitis but patient is currently refusing -Given quick turn around I suspect this was related to his norovirus and hypovolemia, however -In absence of LP info and given clinical stability recommend observing off all antimicrobials and antivirals and monitoring overnight -ID will sign off History of Present Illness History of Present Illness Patient presented after being found in the road by a passerby. He states that he was at his daughter's play when he developed the sudden urge to vomit. He went outside and fainted. He quickly came to and rested for a few minutes before feeling like he was well enough to drive. He got in his car and drove for a bit before again having the sudden urge to vomit. He got out of his car and ultimately passed out again and remembers nothing besides a passerby waking him up. He denies ever being confused. He reports that he has felt unwell for the past several days and has very little intake. He has no sick contacts, no pets, no recent travel, no exposure to ticks. He is currently receiving vancomycin, cefepime, doxycycline, metronidazole, and acyclovir. No drugs or alcohol prior to the event. Allergies Allergy/AdvReac Type Severity Reaction Status Date / Time Opioids - Morphine Analogues AdvReac Intermediate Vomiting Verified 04/06/24 01:20 Home Medications Medication Instructions Recorded Confirmed Type desvenlafaxine succinate 50 mg 50 mg PO DAILY 09/01/23 09/01/23 History tablet,extended release 24 hr Patient History Social History Smoking Status: Never smoker Second Hand Exposure: No; Do You Dip or Chew Tobacco: No; Hx Alcohol Use: Yes Alcohol type: beer Preferred Language: Slovak Communication Ability: Effective Wad Impregnator Required: No Beliefs That Will Affect Care: None Current Living Situation: Alone Other Information That Helps Us Care for You: No Feels Safe at Home: Yes Safety Concerns: Feels Safe At This Time Assistive Devices: None Review of Systems Full review of systems performed: positive for diarrhea, nausea, vomiting; otherwise negative. Physical Exam Exam limited by telemed. Generally well appearing Facial lesions Alert and oriented x 3 Results & Data Vital Signs (Past 12 Hours) Vital Signs Temp Pulse Pulse Resp BP Pulse Ox O2 Del Method 09/04/23 11:20 37.8 C H 101 H 16 117/68 96 Room Air 09/04/23 10:21 Room Air 09/04/23 07:33 37.2 C 91 H 16 112/69 100 Room Air 09/04/23 07:00 92 H 09/04/23 03:51 37.0 C 100 H 20 107/69 100 Room Air 09/04/23 02:29 Oxymask O2 Flow Rate 09/04/23 11:20 09/04/23 10:21 09/04/23 07:33 09/04/23 07:00 09/04/23 03:51 09/04/23 02:29 1 Laboratory Results Abnormal Labs 09/01/23 09/01/23 09/01/23 21:46 21:51 22:10 WBC 14.28 H RBC Hgb Hct Plt Count 414 H MPV 8.7 L Neut # (Auto) 11.08 H Lymph # (Auto) [place] # (Auto) 0.88 H POC Chloride 100 L POC Anion Gap 14.0 L POC BUN 22 H BUN/Creatinine Ratio Glucose 135 H POC Glucose 127 H POC Glucose (other) 135 H Calcium Phosphorus Ur Specific [place] Stl Norovirus GI/GII PCR Coronavirus HKU1 (PCR) 09/01/23 09/02/23 09/02/23 23:45 03:25 03:54 WBC RBC Hgb Hct Plt Count MPV 8.6 L Neut # (Auto) 9.55 H Lymph # (Auto) 0.41 L [place] # (Auto) POC Chloride POC Anion Gap POC BUN BUN/Creatinine Ratio 20.4 H Glucose 124 H POC Glucose POC Glucose (other) Calcium Phosphorus Ur Specific [place] > 1.045 H Stl Norovirus GI/GII PCR Coronavirus HKU1 (PCR) DETECTED A 09/03/23 09/03/23 09/04/23 04:42 11:50 04:45 WBC RBC 4.50 L 4.40 L Hgb 12.6 L 12.3 L Hct 39.3 L 38.2 L Plt Count MPV 8.7 L 8.4 L Neut # (Auto) Lymph # (Auto) [place] # (Auto) 0.65 H 0.61 H POC Chloride POC Anion Gap POC BUN BUN/Creatinine Ratio Glucose 114 H POC Glucose POC Glucose (other) Calcium 7.5 L 7.7 L Phosphorus 2.0 L Ur Specific [place] Stl Norovirus GI/GII PCR DETECTED A* Coronavirus HKU1 (PCR) Diagnostic Findings Abdomen/Pelvis CT 09/01/23 21:43 Exam(s): CT ABDOMEN + PELVIS With Contrast IV Amt: 115ML OPTIRAY 320 EXAM: CT Abdomen and Pelvis With Intravenous Contrast CLINICAL HISTORY: Reason for exam: recurrent syncopal episodes; fall out of car. TECHNIQUE: Axial computed tomography images of the abdomen and pelvis with intravenous contrast. CTDI is 28.14 mGy and DLP is 1682.76 mGy-cm. Automated exposure control was utilized for the study. A dose lowering technique was utilized adhering to the principles of ALARA. CONTRAST: Patient received 115ML OPTIRAY 320 of IV contrast COMPARISON: No relevant prior studies available. FINDINGS: Lung bases: Unremarkable. No mass. No consolidation. ABDOMEN: Liver: Unremarkable. No mass. Gallbladder and bile ducts: Unremarkable. No calcified stones. No ductal dilation. Pancreas: Unremarkable. No mass. No ductal dilation. Spleen: Unremarkable. No splenomegaly. Adrenals: Unremarkable. No mass. Kidneys and ureters: There is a 2.8 cm simple cyst in the right kidney. No follow-up is required. No hydronephrosis. Stomach and bowel: Bowel loops are nondilated. There are scattered gas fluid levels throughout the small bowel and right colon which is abnormal and suggests ileus or enteritis. The sigmoid colon is contracted. No focal bowel inflammation, pneumoperitoneum, or abscess is seen. PELVIS: Appendix: No findings to suggest acute appendicitis. Bladder: Unremarkable. No mass. Reproductive: Unremarkable as visualized. ABDOMEN and PELVIS: Intraperitoneal space: See above. Bones/joints: No acute fracture. No dislocation. Soft tissues: There is a pedunculated 1.5 cm lipoma in the third portion of the duodenum. Vasculature: Unremarkable. No abdominal aortic aneurysm. Lymph nodes: Unremarkable. No enlarged lymph nodes. IMPRESSION: Bowel loops are nondilated. There are scattered gas fluid levels throughout the small bowel and right colon which is abnormal and suggests ileus or enteritis. The sigmoid colon is contracted. No focal bowel inflammation, pneumoperitoneum, or abscess is seen. Electronically signed by: Fady Yanez MD 09/02/23 00:[address] 09/01/23 21:44 Exam(s): CT C SPINE EXAM: CT Cervical Spine Without Intravenous Contrast CLINICAL HISTORY: Reason for exam: syncope; facial trauma. TECHNIQUE: Axial computed tomography images of the cervical spine without intravenous contrast. CTDI is 28.11 mGy and DLP is 851.55 mGy-cm. Automated exposure control was utilized for the study. A dose lowering technique was utilized adhering to the principles of ALARA. COMPARISON: No relevant prior studies available. FINDINGS: Vertebrae: Chronic appearing Schmorl's node in the superior endplate of C7. No acute fracture. Soft tissues: Unremarkable. DISCS/SPINAL CANAL/NEURAL FORAMINA: C2-C3: Unremarkable. No significant disc disease. No stenosis. C3-C4: Unremarkable. No significant disc disease. No stenosis. C4-C5: Unremarkable. No significant disc disease. No stenosis. C5-C6: Mild degenerative disc disease. No stenosis. C6-C7: Mild degenerative disc disease. No stenosis. C7-T1: Unremarkable. No significant disc disease. No stenosis. IMPRESSION: Mild degenerative changes in the lower cervical spine. No acute fracture, subluxation, or significant spinal stenosis is identified. Electronically signed by: Fady Yanez MD 09/02/23 00:46 AM Chest CTA 09/01/23 21:44 CT angio chest PE protocol HISTORY: 38 years-old Male with PE; recurrent syncopal episodes. Acute shortness of breath with syncope TECHNIQUE: Multiple CTA images of the chest were obtained after the intravenous administration of 115 ml Optiray. Coronal and sagittal MIPS were obtained from the axial data set and were submitted for review. All measurements were obtained according to NASCET criteria. A dose lowering technique was utilized adhering to the principles of ALARA. COMPARISON: None. FINDINGS: CTA: Heart is normal in size. No pericardial effusion or pulmonary embolus. Normal thoracic aorta. Respiratory motion artifact limits evaluation of the segmental and subsegmental branches. CT CHEST: There are a few borderline-enlarged mediastinal and hilar lymph nodes measuring up to 10 mm. Unremarkable thyroid. No pneumothorax, pleural effusion, airspace consolidation or pulmonary edema. Central airways are patent. Minimal dependent subsegmental bibasilar atelectasis. Study is degraded by respiratory motion. No acute upper abdominal abnormality. No acute fracture. Healing subacute nondisplaced fracture of the anterior right fourth rib. IMPRESSION: 1. Study degraded by respiratory motion artifact. 2. No central pulmonary emboli identified. 3. Healing subacute nondisplaced right anterior fourth rib fracture. No pneumothorax. 4. Borderline enlarged mediastinal and hilar lymph nodes are nonspecific and may be reactive. ACT 112: Negative or not required by law. The above report was generated using voice recognition software. It may contain grammatical, syntax or spelling errors. Electronically signed by: Iban Lira M.D. 09/02/2023 12:[address] 09/01/23 21:44 CT head/brain wo con CLINICAL HISTORY: 38 years-old Male with syncope; facial trauma. Acute facial trauma TECHNIQUE: Multiple axial CT images of the head were obtained without contrast. A dose lowering technique was utilized adhering to the principles of ALARA. COMPARISON: CT cervical and maxillofacial studies of same day FINDINGS: No acute intracranial hemorrhage, midline shift, intracranial mass, hyd rocephalus, territorial ischemia or abnormal extra-axial collection. No acute calvarial fracture. Facial bone fractures are better seen on the same day CT facial study. Maxillary sinus air-fluid level. IMPRESSION: 1. No acute intracranial abnormality or calvarial fracture. 2. Please refer to the CT maxillofacial study of same day for additional findings. ACT 112: Negative or not required by law. The above report was generated using voice recognition software. It may contain grammatical, syntax or spelling errors. Electronically signed by: Iban Lira M.D. 09/02/2023 12:[address] 09/01/23 21:45 CT facial bones wo con CLINICAL HISTORY: 38 years-old Male presenting with syncope; fall onto face. Acute facial trauma COMPARISON STUDY: Head CT of same day TECHNIQUE: High-resolution CT scan of the facial bones is performed. Images are reviewed in the axial, sagittal, and coronal planes. IV contrast was not administered for this examination. A dose lowering technique was utilized adhering to the principles of ALARA. CT DOSE: 3918.36 mGy.cm FINDINGS: Acute bilateral nasal bone fractures which are nondisplaced. Numerous punctate radiodense foci noted within the inferior nasal soft tissues. Small left maxillary air-fluid level. Bony orbits appear intact. Mastoid air cells are clear. Numerous chipped teeth are noted with displaced tiny tooth fragments in the adjacent soft tissues. Acute nondisplaced mid nasal septal fracture. The pterygoid plates and mandible appear intact. Anterior facial contusions. Punctate foci of gas noted within the region of the right cavernous sinus/orbital apex on image 165 series 7. IMPRESSION: 1. Acute nondisplaced bilateral nasal bone fractures. 2. Numerous chipped teeth with tiny tooth fragments within the adjacent soft tissues. 3. Acute nondisplaced mid nasal septal fracture. 4. Punctate foci of gas noted within the right middle cranial fossa near the cavernous sinus and right orbital apex of unknown etiology. No basilar skull fracture identified on this exam. ACT 112: Negative or not required by law. The above report was generated using voice recognition software. It may contain grammatical, syntax or spelling errors. Electronically signed by: Iban Lira M.D. 09/02/2023 12:[address] 09/02/23 12:00 CT head/brain wo con CLINICAL HISTORY: ffup head trauma Technique: Contiguous axial CT images of the head were acquired from the base of the skull to the vertex without intravenous contrast administration. Images were viewed in brain, subdural and bone windows. Automated dose lowering techniques and/or adjustment according to patient size were utilized for this exam. Comparison: None available at the time of this dictation. Findings: The ventricles, basal cisterns, and cerebral sulci are normal. There is no acute intracranial hemorrhage or evidence of acute territorial infarction. Neither mass effect, shift of the midline structures, nor abnormal extra-axial fluid collections are shown. Imaged portions of the paranasal sinuses and mastoid air cells are clear. The orbits appear normal. There are no acute fractures of the calvaria or scalp swelling. Impression: No acute intracranial hemorrhage, no evidence of acute territorial infarction or other acute intracranial disease process. ACT 112: Negative or not required by law. Electronically signed by: Gee Vail M.D. 09/02/2023 11:50 AM Carotid Doppler Study 09/02/23 14:26 ULTRASOUND OF THE CAROTID ARTERIES CLINICAL HISTORY: syncope TECHNIQUE: Real-time, grayscale, and color Doppler sonography of the carotid arteries is performed. Images are reviewed in the transverse and longitudinal planes. COMPARISON: Comparison is made to CT cervical spine 09/01/2023 FINDINGS: The carotid arteries are patent bilaterally and demonstrate antegrade flow. There is no atherosclerotic plaque on the right and no atherosclerotic plaque on the left. Normal doppler arterial waveforms are seen throughout. Velocity measurements are listed below. Common carotid peak systolic velocity (cm/sec): RIGHT: 102 LEFT: 96 ICA peak systolic velocity (cm/sec): RIGHT: 133 LEFT: 155 ICA/CC peak systolic ratio: RIGHT: 1.3 LEFT: 1.6 Antegrade flow was shown in the vertebral arteries. The external carotid arteries are patent. Of note, heart rate was elevated during the exam which may result in artifactually high resistance waveforms. IMPRESSION: 1. There is no sonographic evidence of hemodynamically significant stenosis in the right or left carotid arterial system. 2. Antegrade flow is shown in the vertebral arteries. Society of Radiologists in Ultrasound consensus guidelines: Normal: ICA PSV is <125 cm/sec and no plaque or intimal thickening is visible sonographically additional criteria include ICA/CCA PSV ratio <2.0 and ICA EDV <40 cm/sec <50% ICA stenosis: ICA PSV is <125 cm/sec and plaque or intimal thickening is visible sonographically additional criteria include ICA/CCA PSV ratio <2.0 and ICA EDV <40 cm/sec 50-69% ICA stenosis: ICA PSV is 125-230 cm/sec and plaque is visible sonographically additional criteria include ICA/CCA PSV ratio of 2.0-4.0 and ICA EDV of 40-100 cm/sec ?70% ICA stenosis but less than near occlusion: ICA PSV is >230 cm/sec and visible plaque and luminal narrowing are seen at arrieta-scale and color Doppler ultrasound (the higher the Doppler parameters lie above the threshold of 230 cm/sec, the greater the likelihood of severe disease) additional criteria include ICA/CCA PSV ratio >4 and ICA EDV >100 cm/sec ACT 112: Negative or not required by law. Electronically signed by: Gee Vail M.D. 09/02/2023 7:10 PM Brain MRI 09/02/23 14:27 MR brain wo/w con CLINICAL HISTORY: syncope TECHNIQUE: Multiplanar and multisequence MR images of the brain were obtained prior to and following administration of gadolinium contrast. Comparison: Comparison is made to MRI brain 09/02/2023 FINDINGS: No abnormal restricted diffusion is identified. The white matter is unremarkable. The ventricular system is normal in appearance. No mass or abnormal enhancement is seen. There is no mass effect or midline shift. There is no evidence of acute intraparenchymal hemorrhage. No extra axial fluid collections are seen. The corpus callosum, pituitary gland, and cerebellar tonsils appear grossly unremarkable. Flow voids of the major intracranial arterial vessels are identified. Sinus mucosal thickening is seen most prominent in the bilateral maxillary sinuses. IMPRESSION: No acute abnormalities. ACT 112: Negative or not required by law. Electronically signed by: Gee Vail M.D. 09/02/2023 7:05 PM Medications Administered Home Medications Medication Instructions Recorded Confirmed Last Taken desvenlafaxine succinate 50 mg 50 mg PO DAILY 09/01/23 09/01/23 Unknown tablet,extended release 24 hr Active Medications Generic Name Dose Route Start Last Admin Trade Name Freq PRN Reason Stop Dose Admin Acetaminophen 650 mg 09/02/23 02:21 09/04/23 12:17 Acetaminophen 325 Mg Tab PO 10/02/23 02:20 650 mg QID PRN Administration pain/fever Desvenlafaxine Succinate 1 tab 09/03/23 09:00 09/04/23 08:03 Desvenlafaxine Succinate Er Tablet PO 10/03/23 08:59 1 tab DAILY ROBERTO Administration Doxycycline Hyclate 100 mg 09/03/23 11:00 09/04/23 08:03 Doxycycline Hyclate 100 Mg Cap PO 09/05/23 10:59 100 mg BID ROBERTO Administration Sodium Chloride 1,000 mls @ 150 mls/hr 09/02/23 15:00 09/04/23 08:02 Nss IV 10/02/23 14:59 150 mls/hr .[id number] ROBERTO Administration Cefepime HCl 2,000 mg/ Syringe 20 mls @ 5 mls/min 09/03/23 12:00 09/04/23 12:17 IV 09/05/23 11:59 5 mls/min Q8H ROBERTO Administration Protocol Metronidazole 500 mg in 100 mls @ 100 mls/hr 09/03/23 17:00 09/04/23 05:43 Flagyl IV 09/13/23 16:59 Infused Q12H ROBERTO Infusion Protocol Acyclovir Sodium 970 mg/ 269.4 mls @ 250 mls/hr 09/03/23 17:00 09/04/23 09:50 Dextrose IV 09/13/23 16:59 Infused Q8H ROBERTO Infusion Protocol Vancomycin HCl 1,750 mg/ 535 mls @ 200 mls/hr 09/04/23 12:00 09/04/23 12:05 Sodium Chloride IV 09/06/23 00:00 200 mls/hr Q12H ROBERTO Administration Ketorolac Tromethamine 15 mg 09/02/23 02:21 09/03/23 11:24 Ketorolac Tromethamine 15 Mg/Ml Vial IV 09/07/23 02:20 15 mg Q6H PRN Administration Pain
--- NOTE | 2023-09-04 14:58 | Hospitalist Progress Note ---
Date of Service September 04, 2023 Assessment & Plan (1) Syncope: Plan Pt is a 38yoM with PMhx significant for ADHD, anxiety/mood disorder, past tobacco abuse presenting with facial fractures in the setting of syncopal episodes prior to arrival. Syncope Tox screen negative UA negative Head CT with no acute cause EKG with sinus tachycardia, Echo grossly unremarkable with EF 55-60%, no valvular pathology, nondilated cardiac chambers Brain MRI with no acute changes Carotid dopplers with no acute changes EEG completed but read pending Orthostatic vitals- systolic BP decreased by 20 points from laying to standing Pt positive for non-covid coronovirus and norovirus infection, ?of episode due to this setting? Notes episodes of vomiting and noted enteritis prior to arrival Continue IVF Continue to monitor on telemetry Headache Fevers Coronovirus infection ?Meningitis/Encephalitis Pt with intractable headache Known non-covid coronovirus infection Spiking fevers overnight on 09/01 LP, neurology consulted, appreciate recs -pt declining LP Trend fever curve Abx broadened to Cefepime, Vancomycin and doxycycline for possible bacterial meningitis Pain control ID consulted, appreciate recs -recommended d/c all abx and antivirals and monitor off of meds Continue to monitor Norovirus infection WBC elevated to 14K on admission CT abdomen pelvis noting a possible enteritis Pt with viral coronovirus infection, non covid Stool Cx + for norovirus C diff negative Supportive treatments Coronavirus Infection Pt positive for non covid coronavirus infection Supportive treatment Acute Facial fractures Chipped teeth Subacute rib fracture Facial fractures/dirty lacerated wounds status post repair Likely in setting of above, pt with noted repeat episodes of syncope Face CT noting acute nasal bone fractures, chipped teeth and acute nondisplaced mid nasal septal fracture Was on Augmentin in this setting of dirty laceration, broadened as above with addition of Flagyl for anaerobic coverage Pain control OMFS consulted, appreciate recs -outpt followup Will likely need oral abx coverage on discharge Gas foci, R middle Cranial fossa Noted on face CT Head CT as above MRI brain with no acute findings Consider neuro follow up based on further imaging Sinus Tachycardia HR consistently above 100 EKG noting sinus tachycardia Echo as above, grossly unremarkable with EF 55-60%, no valvular pathology, nondilated cardiac chambers Likely elevated in acute setting Anticipate improvement with pain control and abx Continue to monitor, consider BB if persistent Hyperglycemia Glucose levels elevated Hgba1c wnl, DMII r/o Degenerative disc Disease Noted on CT cervical spine pain control if symptomatic PCP f/u Enlarged mediastinal and hilar lymph nodes Noted on CT imaging likely reactive Outpt followup ADHD stable off maintenance medications anxiety/mood disorder at baseline Diet: Clears, advance as tolerated DVT prophylaxis: SCDs Re: Traumatic epistaxis Full code Admission and Anticipated Discharge Date Admission Date: September 02, 2023 Subjective Notified by nursing that pt's fiance ( who had been previously introduced as "critical care KRISTIN) was demanding that this provider present to bedside immediately or they were going to talk to patient advocate. Pt willingly given patient care associate number by this provider. Per pt, did not like that he received antibiotics when he had documented viral infections. Had been explained repeatedly that pt had a leukocytosis of 14K on arrival with left shift, no noted lymphocytosis and had been on antibiotics in the setting of facial fractures and dirty laceration wound repair. In addition pt with intractable headache and spiking repeated fevers, declining LP. Pt later provided with his WBC trend with diff to assist with further explanation of need for abx. Review of Systems Review of Systems: All systems reviewed & are unremarkable except as noted in Subjective Physical Exam Physical Exam: General: Alert, oriented Skin: facial bruises noted Psych: Appropriate mood and affect HEENT: NC/AT CV: RRR Resp: Breath sounds clear bilaterally, no increased effort of breathing. Abdomen: Soft, nontender, nondistended. Extremities: No edema in lower extremities bilaterally. Results & Data Results & Data Vital Signs (Past 12 Hours) Vital Signs Temp Pulse Pulse Resp BP Pulse Ox O2 Del Method 09/04/23 14:46 101 H 09/04/23 11:20 37.8 C H 101 H 16 117/68 96 Room Air 09/04/23 10:21 Room Air 09/04/23 07:33 37.2 C 91 H 16 112/69 100 Room Air 09/04/23 07:00 92 H 09/04/23 03:51 37.0 C 100 H 20 107/69 100 Room Air
[2023-09-05 04:39] LABS: Basophils # (auto) 0.02 K/uL (0.00-0.20); Basophils % (auto) 0.3 %; Eosinophils # (auto) 0.17 K/uL (0.00-0.50); Eosinophils % (auto) 2.2 %; Hematocrit (blood only) 39.1 % (42.0-52.0); Hemoglobin 12.8 g/dl (14.0-18.0); Immature Granulocytes # (auto) 0.02 K/uL (0.01-0.20); Immature Granulocytes % (auto) 0.3 %; Lymphocytes # (auto) 2.23 K/uL (1.20-3.40); Lymphocytes % (auto) 29.1 %; Mean Corpuscular Hemoglobin 27.8 pg (25.0-34.0); Mean Corpuscular Hgb Conc 32.7 g/dL (32.0-36.0); Mean Corpuscular Volume 84.8 fL (80.0-100.0); Mean Platelet Volume 8.7 fL (9.4-12.4); Monocytes # (auto) 0.72 K/uL (0.11-0.59); Monocytes % (auto) 9.4 %; Neutrophils % (auto) 58.7 %; Platelet Count 252 K/uL (130-400); RDW Coefficient of Variation 13.4 % (11.5-14.5); RDW Standard Deviation 41.6 fL (36.4-46.3); Red Blood Count 4.61 M/uL (4.70-6.10); White Blood Count 7.66 K/ul (4.8-10.8)
[2023-09-05 04:54] LABS: Calcium 8.3 mg/dl (8.6-10.3); Creatinine Clr Calc Pharmacy 187.6 ml/min; Est GFR (African American) 135.8 ml/min; Est GFR (Non-African American) 117.2 ml/min; Magnesium 1.8 mg/dl (1.7-2.4); Potassium 3.7 mmol/L (3.5-5.1)
--- NOTE | 2023-09-05 06:27 | Electroencephalogram ---
EEG Procedure Note Date of Service September 04, 2023 Start / End Times Start Time: 10:31 End Time: 10:[address] Mouna Villaseñor History A 38 year old male with syncope. EEG performed for evaluation of epileptiform activity. Home Medication List Medication Instructions Recorded Confirmed Type desvenlafaxine succinate 50 mg 50 mg PO DAILY 09/01/23 09/01/23 History tablet,extended release 24 hr Inpatient Medication List Acetaminophen (Acetaminophen 325 Mg Tab) 650 mg PO QID PRN PRN Reason: pain/fever Stop: 10/02/23 02:20 Last Admin: 09/04/23 22:26 Dose: 650 mg Documented By: MARY ANN Admin: 09/04/23 12:17 Dose: 650 mg Documented By: Admin: 09/03/23 20:32 Dose: 650 mg Documented By: Admin: 09/03/23 08:34 Dose: 650 mg Documented By: Admin: 09/02/23 21:53 Dose: 650 mg Documented By: MARY ANN Admin: 09/02/23 15:15 Dose: 650 mg Documented By: LAN Desvenlafaxine Succinate (Desvenlafaxine Succinate Er Tablet) 1 tab PO DAILY [facility] Stop: 10/03/23 08:59 Last Admin: 09/04/23 08:03 Dose: 1 tab Documented By: Admin: 09/03/23 08:34 Dose: 1 tab Documented By: RASHEEDA Ketorolac Tromethamine (Ketorolac Tromethamine 15 Mg/Ml Vial) 15 mg IV Q6H PRN PRN Reason: Pain Stop: 09/07/23 02:20 Last Admin: 09/03/23 11:24 Dose: 15 mg Documented By: Admin: 09/02/23 16:43 Dose: 15 mg Documented By: Admin: 09/02/23 10:33 Dose: 15 mg Documented By: LAN Discontinued Medications Amoxicillin/Clavulanate Potassium (Amoxicillin/Clavulanate 875 Mg Tab) 1 tab PO BIDM [facility]; Protocol Stop: 09/09/23 07:59 Last Admin: 09/03/23 09:12 Dose: 1 tab Documented By: Admin: 09/02/23 16:42 Dose: 1 tab Documented By: Admin: 09/02/23 08:39 Dose: 1 tab Documented By: LAN Doxycycline Hyclate (Doxycycline Hyclate 100 Mg Cap) 100 mg PO BID [facility] Stop: 09/05/23 10:59 Last Admin: 09/04/23 08:03 Dose: 100 mg Documented By: Admin: 09/03/23 20:32 Dose: 100 mg Documented By: Admin: 09/03/23 12:53 Dose: 100 mg Documented By: RASHEEDA Gadobutrol (Gadobutrol 65ml Vial) 12.5 ml IV ONCE ONE Stop: 09/02/23 16:16 Last Admin: 09/02/23 16:15 Dose: 12.5 ml Documented By: KAYLYN Hydromorphone HCl (Hydromorphone Inj 1 Mg/Ml Syringe) 1 mg IV NOW STA Stop: 09/02/23 00:45 Last Admin: 09/02/23 00:57 Dose: 1 mg Documented By: MINAL Sodium Chloride (Nss) 1,000 mls @ 999 mls/hr IV .Q1H1M ONE Stop: 09/01/23 22:45 Last Infusion: 09/02/23 01:00 Dose: Infused Documented By: Admin: 09/01/23 23:11 Dose: 999 mls/hr Documented By: MINAL Ampicillin Sodium/Sulbactam Sodium 3,000 mg/ Sodium Chloride 100 mls @ 200 mls/hr IV NOW STA Stop: 09/02/23 01:15 Last Infusion: 09/02/23 02:40 Dose: Infused Documented By: Admin: 09/02/23 01:30 Dose: 200 mls/hr Documented By: MINAL Magnesium Sulfate/Dextrose (Magnesium Sulfate / D5w) 1 gm in 100 mls @ 50 mls/hr IV ONE STA Stop: 09/02/23 03:05 Last Infusion: 09/02/23 04:58 Dose: Infused Documented By: Admin: 09/02/23 02:03 Dose: 50 mls/hr Documented By: MINAL Lactated Ringer's (Lr) 1,000 mls @ 200 mls/hr IV .Q5H STA Stop: 09/02/23 06:06 Last Infusion: 09/02/23 10:05 Dose: Infused Documented By: Admin: 09/02/23 05:02 Dose: 200 mls/hr Documented By: Sodium Chloride (Nss) 1,000 mls @ 999 mls/hr IV .Q1H1M ONE Stop: 09/02/23 02:19 Last Infusion: 09/02/23 04:58 Dose: Infused Documented By: Admin: 09/02/23 02:03 Dose: 999 mls/hr Documented By: MINAL Sodium Chloride (Nss) 1,000 mls @ 150 mls/hr IV .Q6H40M [facility] Stop: 10/02/23 14:59 Last Infusion: 09/04/23 23:17 Dose: Infused Documented By: Admin: 09/04/23 21:10 Dose: 150 mls/hr Documented By: Infusion: 09/04/23 21:10 Dose: Infused Documented By: Admin: 09/04/23 14:32 Dose: 150 mls/hr Documented By: Infusion: 09/04/23 14:32 Dose: Infused Documented By: Admin: 09/04/23 08:02 Dose: 150 mls/hr Documented By: Infusion: 09/04/23 07:47 Dose: Infused Documented By: Admin: 09/04/23 01:06 Dose: 150 mls/hr Documented By: Infusion: 09/04/23 01:06 Dose: Infused Documented By: Admin: 09/03/23 18:25 Dose: 150 mls/hr Documented By: Infusion: 09/03/23 12:54 Dose: Infused Documented By: Admin: 09/03/23 06:08 Dose: 150 mls/hr Documented By: Infusion: 09/03/23 05:46 Dose: Infused Documented By: Infusion: 09/02/23 23:33 Dose: 150 mls/hr Documented By: Admin: 09/02/23 22:42 Dose: 80 mls/hr Documented By: Infusion: 09/02/23 22:42 Dose: Infused Documented By: Admin: 09/02/23 15:14 Dose: 80 mls/hr Documented By: LAN Piperacillin Sod/Tazobactam (Sod 4.5 gm/ Dextrose) 100 mls @ 25 mls/hr IV Q8H [facility]; Protocol Stop: 09/05/23 10:59 Last Admin: 09/03/23 11:34 Dose: Not Given Documented By: AMS Vancomycin HCl 1,500 mg/ (Sodium Chloride) 530 mls @ 200 mls/hr IV Q12H [facility] Stop: 09/06/23 00:00 Last Infusion: 09/04/23 02:45 Dose: Infused Documented By: Admin: 09/03/23 23:54 Dose: 200 mls/hr Documented By: FRANCO Cefepime HCl 2,000 mg/ Syringe 20 mls @ 5 mls/min IV Q8H [facility]; Protocol Stop: 09/05/23 11:59 Last Admin: 09/04/23 12:17 Dose: 5 mls/min Documented By: Admin: 09/04/23 04:31 Dose: 5 mls/min Documented By: Admin: 09/03/23 20:32 Dose: 5 mls/min Documented By: Admin: 09/03/23 13:36 Dose: 5 mls/min Documented By: RASHEEDA Vancomycin HCl 2,750 mg/ (Sodium Chloride) 555 mls @ 200 mls/hr IV NOW ONE Stop: 09/03/23 14:46 Last Infusion: 09/03/23 15:49 Dose: Infused Documented By: Admin: 09/03/23 12:52 Dose: 200 mls/hr Documented By: RASHEEAD Metronidazole (Flagyl) 500 mg in 100 mls @ 100 mls/hr IV Q12H [facility]; Protocol Stop: 09/13/23 16:59 Last Infusion: 09/04/23 05:43 Dose: Infused Documented By: MARY ANN Admin: 09/04/23 04:31 Dose: 100 mls/hr Documented By: Infusion: 09/03/23 18:25 Dose: Infused Documented By: Admin: 09/03/23 17:20 Dose: 100 mls/hr Documented By: RASHEEDA Acyclovir Sodium 970 mg/ (Dextrose) 269.4 mls @ 250 mls/hr IV Q8H [facility]; Protocol Stop: 09/13/23 16:59 Last Infusion: 09/04/23 09:50 Dose: Infused Documented By: Admin: 09/04/23 08:06 Dose: 250 mls/hr Documented By: Infusion: 09/04/23 04:30 Dose: Infused Documented By: Admin: 09/04/23 02:40 Dose: 250 mls/hr Documented By: MARY ANN Infusion: 09/03/23 18:25 Dose: Infused Documented By: Admin: 09/03/23 17:20 Dose: 250 mls/hr Documented By: RASHEEDA Potassium Phosphate 21 mmol/ (Sodium Chloride) 507 mls @ 88 mls/hr IV ONE ONE Stop: 09/04/23 13:45 Last Infusion: 09/04/23 15:28 Dose: Infused Documented By: Admin: 09/04/23 09:42 Dose: 88 mls/hr Documented By: ZANE Vancomycin HCl 1,750 mg/ (Sodium Chloride) 535 mls @ 200 mls/hr IV Q12H [facility] Stop: 09/06/23 00:00 Last Infusion: 09/04/23 14:49 Dose: Infused Documented By: Admin: 09/04/23 12:05 Dose: 200 mls/hr Documented By: ZANE Ioversol (Optiray 320 125ml) 115 ml IV ONCE ONE Stop: 09/01/23 22:15 Last Admin: 09/01/23 22:14 Dose: 115 ml Documented By: PATSY Lidocaine HCl (Lidocaine 1% Local 20 Ml Vial) 20 ml INFIL NOW ONE Stop: 09/02/23 00:47 Last Admin: 09/02/23 01:47 Dose: 20 ml Documented By: MINAL Lorazepam (Lorazepam 1 Mg/1 Ml Syr Ed Inj Use) 1 mg IV ONE STA Stop: 09/02/23 01:20 Last Admin: 09/02/23 02:05 Dose: Not Given Documented By: MINAL Miscellaneous (Desvenfelaxine~Order Awaiting Action) 1 each N/A QS [facility] Stop: 10/02/23 05:44 Last Admin: 09/02/23 22:47 Dose: Not Given Documented By: MARY ANN Admin: 09/02/23 15:40 Dose: Not Given Documented By: Admin: 09/02/23 09:13 Dose: Not Given Documented By: Admin: 09/02/23 09:12 Dose: Not Given Documented By: LAN Ondansetron HCl (Ondansetron Inj 2 Mg/Ml 2 Ml Vial) 4 mg IV NOW STA Stop: 09/01/23 21:46 Last Admin: 09/01/23 23:41 Dose: 4 mg Documented By: MINAL Ondansetron HCl (Ondansetron Inj 2 Mg/Ml 2 Ml Vial) Confirm Administered Dose 4 mg .ROUTE .STK-MED ONE Stop: 09/02/23 01:12 Last Admin: 09/02/23 01:31 Dose: Not Given Documented By: MINAL Ondansetron HCl (Ondansetron Inj 2 Mg/Ml 2 Ml Vial) 4 mg IV NOW STA Stop: 09/02/23 01:20 Last Admin: 09/02/23 01:30 Dose: 4 mg Documented By: MINAL Description This is a 21 electrode EEG with a single channel dedicated to limited EKG. The electrodes were placed in accordance with the International 10-20 system. REPORT: At the onset of the EEG, the patient is drowsy. The background activity consist of 10-11 Hz, persistent, posteriorly dominant, moderate amplitude, symmetric and rhythmic activity that is reactive to eye opening. Anteriorly, it consist of a mixture of low voltage indeterminate activity and 15-25 Hz, persistent, low amplitude, symmetric and rhythmic activity. Stepwise intermittent photic stimulation (1-21 Hz) does not induce any abnormalities. Drowsiness is characterized by low amplitude mixed frequency activity, roving eye movements, and decreased eye blinking and muscle artifact. Interpretation IMPRESSION: This is a normal awake and drowsy routine EEG. There is no evidence of focal slowing or epileptiform activity.
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
[2023-09-07 00:33] LABS: Babesia microti DNA Not Detected (Not Detected)
== END 2023-09-05 10:29 | disposition home or self-care (01) | DRG 94 ==
LOC: ED 21:30 → EDINP 09-02 02:18 → 2W 09-02 17:46